=== PATIENT | female | born 1940 | race Caucasian/White ===

== ENCOUNTER 2017-11-04 08:22 | Day surgery (SDC) | payer OTHER ==
[2017-11-04] MEDS: CYCLOGYL 2% OPTH OP PRN ×3 (09:05→09:15)
[2017-11-04] MEDS: BETADINE OPTH PREP OP PRN ×2 (09:05→10:10)
[2017-11-04] MEDS: TETRACAINE 0.5% UNIT-DOSE OP PRN ×2 (09:05→10:09)
[2017-11-04] MEDS ORDERED: BSS WITH EPINEPHRINE OP ONE (09:18)
[2017-11-04] MEDS ORDERED: LIDOCAINE 1% 20 ML MDV ID STA (09:18)
[2017-11-04] MEDS ORDERED: DEX-MOXI-KETOR OPTH INJ 1/0.5/0.4 MG/ML IO ONE (09:18)
[2017-11-04] MEDS ORDERED: ZOFRAN 4 MG/2 ML IVP ONE (09:18)
[2017-11-04] MEDS ORDERED: BRIMONIDINE TARTRATE 0.2% OPTH SOL OP PRN (09:18)
[2017-11-04] MEDS ORDERED: LIDOCAINE 1%/PHENYLEPHRINE 1.5% BSS (SURGERY) INTRAOCULA ONE (09:18)
[2017-11-04] MEDS ORDERED: VERSED ONE (10:10)
[2017-11-04] MEDS ORDERED: SUBLIMAZE ONE (10:10)
[2017-11-05 13:45] VITALS: TEMP 98.6
[2017-11-05 13:46] VITALS: BP 132/56
== END 2017-11-04 11:00 | disposition home or self-care (01) ==
LOC: SURG 08:22
PROVIDERS: ATTEND Ophthalmology
DX: H25.811 Combined forms of age-related cataract, right eye (principal)

== ENCOUNTER 2017-11-18 06:42 | Day surgery (SDC) | payer OTHER ==
[2017-11-18] MEDS: BETADINE OPTH PREP OP PRN ×2 (07:00→07:51)
[2017-11-18] MEDS: TETRACAINE 0.5% UNIT-DOSE OP PRN ×2 (07:00→08:07)
[2017-11-18] MEDS: CYCLOGYL 2% OPTH OP PRN ×3 (07:01→07:11)
[2017-11-18] MEDS ORDERED: BSS WITH EPINEPHRINE OP ONE (07:42)
[2017-11-18] MEDS ORDERED: BRIMONIDINE TARTRATE 0.2% OPTH SOL OP PRN (07:42)
[2017-11-18] MEDS ORDERED: ZOFRAN 4 MG/2 ML IVP ONE (07:42)
[2017-11-18] MEDS ORDERED: LIDOCAINE 1%/PHENYLEPHRINE 1.5% BSS (SURGERY) INTRAOCULA ONE (07:42)
[2017-11-18] MEDS ORDERED: DEX-MOXI-KETOR OPTH INJ 1/0.5/0.4 MG/ML IO ONE (07:42)
[2017-11-18 07:44] VITALS: TEMP 98.2
[2017-11-18] MEDS ORDERED: VERSED ONE (08:00)
[2017-11-18] MEDS ORDERED: SUBLIMAZE ONE (08:00)
[2017-11-23 08:49] VITALS: BP 116/56
== END 2017-11-18 08:50 | disposition home or self-care (01) ==
LOC: SURG 06:42
PROVIDERS: ATTEND Ophthalmology
DX: H25.9 Unspecified age-related cataract (principal)